=== PATIENT | female | born 1940 | race Caucasian/White ===

== ENCOUNTER → 2016-12-07 | Outpatient (REF) ==
[~2016-12-07] MED LIST: ADVAIR 250/28 DISKU1 IH; ADVIL200 MG PO; ANTACID200 MG PO; ARAVA 20MG TABL20 MG PO; ASPI325T6 PO; ASPIRIN 32325 MG/TAB PO; ASPIRIN E.C. 8181 MG PO; CALCIUM CITRATE1 TA1 PO; CEFTIN 250250 MG/TAB PO; CEFTIN500 MG PO; CEPHALEXIN500 M1 PO; CIPRO 500MG TA500 MG PO; COLESTID 1GM1 G PO; FERROUS SU325 MG/TAB PO; HCTZ PO; HCTZ12.5TAB PO; HYGROTON 2525 MG/TAB PO; INVANZ INJ1 G/VIAL IV; LEXAPRO 10MG10 MG PO; LIPITOR 80MG80 MG PO; MILK OF MA400 MG/52 PO; NORCO 325 MG-7.1 TAB PO; PREDNISONE 5MG5 MG PO; PROAIR HFA0.09 MG/AC IH; ROXICODONE 55 MG/TAB PO; RT ADVAIR 228 DISKUS IH; SENOKOT8.6 MG PO; TOPROL XL 25MG25 MG PO; VITAMIN C500 MG PO; VITAMIN D1000 IU PO; VITAMIN D31000 I1 PO; VITAMINC250CH; VITAMINC250CH PO; XARELTO20 MG PO
== END ==
LOC: ZLAB.WCH 11:47
DX: Z01.89 Encounter for other specified special examinations (principal)

== ENCOUNTER → 2016-12-12 | Outpatient (REF) | LOC: ZLAB.WCH 10:59 | DX: Z01.89 Encounter for other specified special examinations (principal) ==

== ENCOUNTER 2016-12-27 07:01 | Outpatient (CLI) | payer MEDICARE, BC ==
[2005-12-27 17:13] VITALS: BP 135/71
[~2016-12-27] VITALS: Ht 167.6 cm; Wt 59.1 kg
[~2016-12-27 07:01] MED LIST changes: -CEPHALEXIN500 M1 PO; -XARELTO20 MG PO
[2016-12-27 08:37] VITALS: BP 149/75; PULSE 62; TEMP 97.3
[2016-12-27] MEDS ORDERED: XARELTO20 MG PO (08:37)
[2016-12-27] MEDS ORDERED: CEPHALEXIN500 M1 PO (08:48)
== END 2016-12-27 09:20 | disposition home or self-care (01) ==
LOC: COL.CAR 07:01
DX: I48.0 Paroxysmal atrial fibrillation (principal); I25.10 Atherosclerotic heart disease of native coronary artery without angina pectoris; I13.10 Hypertensive heart and chronic kidney disease without heart failure, with stage 1 through stage 4 chronic kidney disease, or unspecified chronic kidney disease; N18.9 Chronic kidney disease, unspecified; E78.5 Hyperlipidemia, unspecified; M06.9 Rheumatoid arthritis, unspecified; E86.0 Dehydration; D50.9 Iron deficiency anemia, unspecified; I73.9 Peripheral vascular disease, unspecified; I07.1 Rheumatic tricuspid insufficiency; I27.2 Other secondary pulmonary hypertension; Z96.641 Presence of right artificial hip joint; Z79.01 Long term (current) use of anticoagulants; Z87.891 Personal history of nicotine dependence; Z82.61 Family history of arthritis; Z82.3 Family history of stroke; Z83.6 Family history of other diseases of the respiratory system
CPT/HCPCS: 27124; C1764